=== PATIENT | male | born 1980 | race African-American/Black ===

== ENCOUNTER 2021-06-23 08:49 | Emergency (ER) | payer OTHER ==
[~2021-06-23] VITALS: Ht 172.7 cm; Wt 83.5 kg
[2021-06-23 09:01] VITALS: BP 122/82
--- NOTE | 2021-06-23 09:05 | NUR ---
PT AMBULATED TO ER BED 5 WITH CAREGIVER.
--- NOTE | 2021-06-23 11:51 | NUR ---
BLOOD DRAWN AND LAB WALKED TO LABORATORY
[2021-06-23 13:13] LABS: ANION GAP 13.8 (8-16); CARBON DIOXIDE 26.7 mmol/L (21-32); CREATININE 0.9 mg/dL (0.6-1.3); POTASSIUM 4.5 mmol/L (3.5-5.1)
[2021-06-23 13:16] LABS: BASOPHILS % (AUTO) 0.4 % (0.0-2.0); EOSINOPHILS # (AUTO) 0.1 K/uL (0-0.4); EOSINOPHILS % (AUTO) 2.7 % (0.0-4.0); HEMOGLOBIN 11.7 g/dL (12.0-18.0); LYMPHOCYTES # (AUTO) 1.7 K/uL (2.0-11.5); LYMPHOCYTES % (AUTO) 32.1 % (20.5-51.1); MEAN CORPUSCULAR HEMOGLOBIN 28 pg (27-31); MEAN CORPUSCULAR HGB CONC 33 g/dL (33-37); MEAN CORPUSCULAR VOLUME 85.7 fL (80-94); MONOCYTES # (AUTO) 0.8 K/uL (0.8-1.0); MONOCYTES % (AUTO) 15.2 % (1.7-9.3); NEUTROPHILS # (AUTO) 2.6 K/uL (1.8-7.7); NEUTROPHILS % (AUTO) 49.6 % (42.2-75.2); PLATELET COUNT (AUTO) 222 K/uL (140-450); RED BLOOD CELL COUNT(AUTO) 4.21 MIL/uL (4.20-6.10); RED CELL DISTRIBUTION WIDTH 16.6 % (11.6-13.7); WHITE BLOOD COUNT (AUTO) 5.2 K/uL (4.8-10.8)
[2021-06-23] MEDS ORDERED: CEPH-588 PO (13:53)
[2021-06-23 14:29] VITALS: BP 149/97
--- NOTE | 2021-06-23 14:33 | NUR ---
The patient's care was reviewed and supervised by Nataliia Rice RN.
== END 2021-06-23 14:29 | disposition home or self-care (01) ==
LOC: MED 08:49
DX: R31.9 Hematuria, unspecified (principal); E11.9 Type 2 diabetes mellitus without complications
CPT/HCPCS: 36415; 80048; 81002; 85025; 99285